=== PATIENT | female | born 1960 | race Caucasian/White ===

== ENCOUNTER 2017-06-08 15:56 | Emergency (ER) | payer BC ==
[2017-06-08 16:20] VITALS: BP 135/80
--- NOTE | 2017-06-08 16:58 | RAD ---
Indication: Lateral LEFT foot pain following rolling injury. Comparison: No relevant prior exams available [place] [facility] [place]. Technique: AP, lateral, and oblique views LEFT foot. Report: Nonarticular mildly comminuted fracture junction distal diaphysis and distal metaphysis of the fifth metatarsal with one bone width medial and less marked dorsal displacement as well as mild foreshortening. Overlying soft tissue swelling. Negative for additional fracture. Normal articular alignment throughout. IMPRESSION: Displaced nonarticular fifth metatarsal fracture.
--- NOTE | 2017-06-08 17:49 | UC ---
Lower Extremity/Ankle HPI - HPI Summary HPI Summary: TRIPPED ON RUG [employer], PAIN IN LEFT MIDFOOT, UNABLE TO BEAR WEIGHT. - History of Current Complaint Chief Complaint: UCLowerExtremity Stated Complaint: LEFT FOOT PAIN Time Seen by Provider: 06/08/17 16:04 Hx Obtained From: Patient ?: No Onset/Duration: Sudden Onset, Lasting Hours, Still Present Severity Initially: Severe Severity Currently: Moderate Aggravating Factor(s): Standing, Ambulation Alleviating Factor(s): Rest, Elevation, Ice Able to Bear Weight: No - Risk Factors Gout Risk Factors: Negative DVT Risk Factors: Negative Septic Arthritis Risk Factor: Negative - Allergies/Home Medications Allergies/Adverse Reactions: Allergies Allergy/AdvReac Type Severity Reaction Status Date / Time Erythromycin Allergy Unknown Verified 06/08/17 16:11 Reaction Details Sulfa Antibiotics Allergy Unknown Verified 06/08/17 16:11 Reaction Details Home Medications: Home Medications Levothyroxine TAB* [Synthroid TAB*] 100 mcg PO DAILY 06/08/17 [History Confirmed 06/08/17] PMH/Surg Hx/FS Hx/Imm Hx Previously Healthy: Yes - Surgical History Surgical History: None - Family History Known Family History: Negative: Other - NO JOINT LAXITY - Social History Lives: With Family Alcohol Use: Occasionally Substance Use Type: None Smoking Status (MU): Never Smoked Tobacco Review of Systems Constitutional: Negative Skin: Negative Eyes: Negative ENT: Negative Respiratory: Negative Cardiovascular: Negative Gastrointestinal: Negative Genitourinary: Negative Motor: Negative Neurovascular: Negative Musculoskeletal: Arthralgia, Myalgia Neurological: Negative Psychological: Negative All Other Systems Reviewed And Are Negative: Yes Physical Exam Triage Information Reviewed: Yes Appearance: Well-Appearing, Well-Nourished, Pain Distress Vital Signs: Initial Vital Signs Temp 97.3 F 06/08/17 16:13 Pulse 85 06/08/17 16:13 Resp 20 06/08/17 16:13 BP 135/80 06/08/17 16:13 Pulse Ox 97 06/08/17 16:13 Vital Signs Reviewed: Yes Eye Exam: Normal ENT Exam: Normal ENT: Positive: Normal ENT inspection Dental Exam: Normal Neck exam: Normal Neck: Positive: Supple, Nontender Respiratory Exam: Normal Respiratory: Positive: Chest non-tender, Lungs clear, Normal breath sounds, No respiratory distress Cardiovascular Exam: Normal Cardiovascular: Positive: RRR, No Murmur, Pulses Normal Abdominal Exam: Normal Musculoskeletal: Positive: No Edema, Strength Limited @, ROM Limited @, Other: - POSITIVE LEFT MIDFOOT TENDERNESS (SEVERE AT 5TH METATARSAL) ; NO LATERAL LEG TENDERNESS; NO ACHILLES TENDERNESS Lower Extremity Course/Dx - Differential Dx/Diagnosis Differential Diagnosis/HQI/PQRI: Fracture (Closed), Fracture (Open), Sprain, Strain Provider Diagnoses: CLOSED DISPLACED LEFT NONARTICULAR FIFTH METATARSAL FRACTURE Discharge - Discharge Plan Condition: Stable Disposition: HOME Patient Education Materials: Foot Fracture in Adults (ED) Referrals: Star Rosas MD [Medical Doctor] - Rex Mcelroy MD [Primary Care Provider] -
== END 2017-06-08 17:44 | disposition home or self-care (01) ==
LOC: UCCORT 15:56
DX: S92.352A Displaced fracture of fifth metatarsal bone, left foot, initial encounter for closed fracture (principal); W22.8XXA Striking against or struck by other objects, initial encounter; Z88.3 Allergy status to other anti-infective agents; Z88.2 Allergy status to sulfonamides
CPT/HCPCS: 99213; G0463

== ENCOUNTER 2019-03-13 17:05 | Emergency (ER) | payer BC ==
--- OUTSIDE RECORDS SUMMARY | 2019-03-13 17:20 | XMS REPORT | Continuity of Care Document ---
:1960 External Reference #:[id number] Author Name RubatawanaJamia Smitha Care Team Providers Name Role Phone Rex Mcelroy MD Primary Care Physician Unavailable Payers Date Identification Numbers Payment Provider Subscriber Effective: 2013 Policy Number: [id number] [facility] Yasmani Deluca PayID: [id number] [address] [place] [address] Advance Directives Type Date Description Status Comment Other Directive 08/03/2016 Health Care Proxy Current and Verified Problems Date Description Provider Status Onset: 02/11/2017 Alkaline phosphatase raised Rex Mcelroy M.D.,FACP Active Note: ?bone & liver Onset: 03/28/2013 Hypothyroidism Nimisha Cavanaugh M.D.,FACP Onset: 03/28/2013 Panic disorder with agoraphobia Nimisha Cavanaugh M.D.,FACP Onset: 08/03/2013 Mixed hyperlipidemia Nimisha Cavanaugh M.D.,FACP Onset: 08/03/2016 Vitamin D deficiency Nimisha Cavanaugh M.D.,FACP Onset: 08/24/2016 Chronic nonalcoholic liver Rex Mcelroy Active disease MNoe,FACP Onset: 09/06/2017 Thyroid nodule Nimisha Cavanaugh M.D.,FACP Family History Date Family Member(s) Observation Comments General Diabetes General Heart Disease General Stroke General Cancer General Rheumatoid Arthritis Onset: (age 63 Years) Father [place] Father Stroke Father Kidney Stones Mother Osteoporosis Mother Heart Disease Mother dementia Siblings None Social History Type Date Description Comments Sex Unknown Marital Status Lives With Spouse Occupation 08/09/2017 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 [employer] ETOH Use 08/03/2016 Occasionally consumes liquor Tobacco Use Start: Unknown Patient has never smoked Recreational Drug Use Denies Drug Use Smoking Status Reviewed: 02/19/19 Patient has never smoked Exercise Type/Frequency Exercises sporadically Allergies, Adverse Reactions, Alerts Date Description Reaction Status Severity Comments 03/28/2013 Erythromycin nausea, vomiting Active 03/28/2013 Sulfa Antibiotics anaphylactic reaction Active Medications Medication Date Status Form Strength Qnty SIG Indications Ordering Provider Atorvastatin 02/19/ Active Tablets 20mg 90tabs take 1 E78.2 [facility] Calcium 2018 tablet at MD Jacky bedtime Synthroid 11/11/ Active Tablets 75mcg 30tabs 02/19/19 Rex 2018 reports Bindu Mcelroy, not taking MNoe,SRINATH 1 by mouth every day Knee Scooter 06/13/ Active Misc 1units Omar 2016 F MD Leoncio Sertraline HCL 11/30/ Active Tablets 50mg 60tabs take 2 F41.0 [facility] 2016 tablets by MD Jacky mouth daily Jublia 04/24/ Active Solution 10% 1units 02/19/19 Rex 2014 reports no Bindu Mcelroy, using Garett,SRINATH apply topically nail once daily x 48 weeks Vitamin D 01/08/ Active Tablets 1000Unit 30tabs 1 tab. by Rex 2014 mouth Bindu Mcelroy, daily Garett,FACP spring/ shaquille, 2 qd fall/winte r Lorazepam 03/28/ Active Tablets 1mg 15tabs 11/15-1 by Rex 2012 mouth as Bindu Mcelroy, needed Garett,SRINATH Multi For Her / Active Capsules 1 by mouth Unknown 0000 every day Sertraline HCL 08/25/ Hx Tablets 50mg 30tabs 1.5 tabs F32.9 Rex 2015 - qd for 2w, Bindu Mcelroy, 09/14/ then 1 qd M.DEmili,SRINATH 2016 for 2w, then 0.5 qd for 2 wks Milk Thistle 08/24/ Hx Capsules 150mg 60caps 1 by mouth Rex 2015 - every day Bindu Mcelroy, 08/09/ Garett,SRINATH 2016 Propranolol 09/20/ Hx Tablets 20mg 14tabs 1 by mouth F40.228 Rex HCL 2016 - daily as Bindu Mcelroy, 02/07/ needed MNoe,FACP 2017 Fluticasone 05/26/ Hx Suspension 50mcg/Act 16unit 2 sprays H81.11 Yasmani Propionate 2016 - s umair Wilber, REGISTRY RN 06/03/ nostril qd 2016 for 14 days Sertraline HCL 01/31/ Hx Tablets 100mg 90tabs 1 Tab PO F32.9 Be 2014 - qd MDD 1 Setswana, 08/25/ REGISTRY RN 2015 Sertraline HCL 08/14/ Hx Tablets 100mg 90tabs 1 tab po 311 Sergio 2013 - qd Diop, REGISTRY RN 2014 Zoloft 12/31/ Hx Tablets 50mg 90tabs 1 by mouth Rex 2013 - every day Bindu Mcelroy, 01/08/ MNoe,FACP 2014 Sertraline HCL / Hx Tablets 50mg 90tabs 1&1/2 po Unknown 0000 - qd 2012 Lorazepam / Hx Tablets 0.5mg 30tabs take 1 Unknown 0000 - pill po qd 2012 traveling Synthroid 00/00/ Hx Tablets 50mcg 14tabs 1 by mouth Rex 0000 - every day Bindu Mcelroy, 11/11/ MNoe,FACP 2017 Immunizations Description No Information Available Vital Signs Date Vital Result Comment 02/19/2019 5:14pm Height 60 inches 5'0" Weight 167.00 lb Heart Rate 84 /min BP Systolic Sitting 124 mmHg BP Diastolic Sitting 81 mmHg Body Temperature 97.9 F O2 % BldC Oximetry 97 % BMI (Body Mass Index) 32.6 kg/m2 10/27/2017 10:05am Height 60 inches 5'0" Weight 153.00 lb Heart Rate 83 /min BP Systolic 133 mmHg BP Diastolic 75 mmHg Respiratory Rate 17 /min Pain Level 1 BMI (Body Mass Index) 29.9 kg/m2 08/16/2017 10:59am Height 60 inches 5'0" Weight 156.00 lb BP Systolic 124 mmHg BP Diastolic 74 mmHg Respiratory Rate 16 /min Pain Level 1 BMI (Body Mass Index) 30.5 kg/m2 08/09/2017 9:25am Height 60 inches 5'0" Weight 156.00 lb Heart Rate 88 /min BP Systolic Sitting 132 mmHg BP Diastolic Sitting 86 mmHg O2 % BldC Oximetry 98 % BMI (Body Mass Index) 30.5 kg/m2 07/07/2017 1:12pm Height 60 inches 5'0" Weight 155.00 lb BP Systolic 118 mmHg BP Diastolic 68 mmHg Respiratory Rate 18 /min Pain Level 0 BMI (Body Mass Index) 30.3 kg/m2 06/09/2017 1:57pm Height 60 inches 5'0" Weight 155.00 lb Respiratory Rate 20 /min Body Temperature 98.7 F Pain Level 0 BMI (Body Mass Index) 30.3 kg/m2 02/07/2017 10:14am Weight 155.00 lb Heart Rate 85 /min BP Systolic Sitting 122 mmHg BP Diastolic Sitting 80 mmHg Body Temperature 97.5 F O2 % BldC Oximetry 96 % 11/30/2016 5:15pm Weight 158.00 lb Heart Rate 83 /min BP Systolic Sitting 120 mmHg BP Diastolic Sitting 80 mmHg O2 % BldC Oximetry 96 % 09/14/2016 9:55am Weight 161.00 lb Heart Rate 76 /min BP Systolic Sitting 122 mmHg BP Diastolic Sitting 70 mmHg Respiratory Rate 15 /min Body Temperature 97.8 F O2 % BldC Oximetry 98 % 08/03/2016 10:35am Weight 161.00 lb Heart Rate 90 /min BP Systolic Sitting 124 mmHg BP Diastolic Sitting 80 mmHg Respiratory Rate 15 /min Body Temperature 98.3 F O2 % BldC Oximetry 98 % 05/26/2016 2:13pm Weight 157.50 lb Heart Rate 68 /min BP Systolic Sitting 129 mmHg BP Diastolic Sitting 85 mmHg Body Temperature 98.1 F O2 % BldC Oximetry 95 % 05/06/2015 1:04pm Height 60.5 inches 5'0.50" Weight 152.00 lb Heart Rate 84 /min BP Systolic Sitting 110 mmHg BP Diastolic Sitting 60 mmHg O2 % BldC Oximetry 98 % BMI (Body Mass Index) 29.2 kg/m2 04/24/2015 1:51pm Weight 153.50 lb Heart Rate 108 /min BP Systolic Sitting 132 mmHg BP Diastolic Sitting 84 mmHg Body Temperature 99.8 F 01/08/2015 3:12pm Height 60 inches 5'0" Weight 153.50 lb Heart Rate 80 /min BP Systolic Sitting 118 mmHg BP Diastolic Sitting 70 mmHg O2 % BldC Oximetry 97 % BMI (Body Mass Index) 30.0 kg/m2 08/14/2014 4:26pm Height 60 inches 5'0" Weight 156.75 lb Heart Rate 74 /min BP Systolic Sitting 106 mmHg BP Diastolic Sitting 73 mmHg Body Temperature 98.0 F O2 % BldC Oximetry 98 % BMI (Body Mass Index) 30.6 kg/m2 08/03/2013 10:50am Height 60 inches 5'0" Weight 156.25 lb Heart Rate 88 /min BP Systolic Sitting 110 mmHg BP Diastolic Sitting 80 mmHg BMI (Body Mass Index) 30.5 kg/m2 03/28/2013 10:54am Height 60 inches 5'0" Weight 162.00 lb Heart Rate 96 /min BP Systolic Sitting 114 mmHg BP Diastolic Sitting 72 mmHg BMI (Body Mass Index) 31.6 kg/m2 Results Test Date Facility Test Result H/L Range Note Laboratory test 11/11/2018 [facility] TSH 9.32 mcIU/mL High 0.34-5.60 1 finding 101 ([place] [address] Stim Horm) [phone] Cortisol 4.23 g/dL 2 T3 Free 3.60 pg/mL N 2.5-3.9 3 Free T4 (Free Thyroxine) 0.62 ng/dL N 0.61-1.12 4 Vitamin D Total 25(Oh) 16.2 ng/mL Low 20-50 5 Thyroglobulin AB > 200.0 IU/mL High <4.0 6 Thyroperoxidase AB > 900.00 IU/mL High <9 7 Lipid Profile 11/11/2018 [facility] Triglycerides 223 mg/dL 8 (Trig/Chol/HDL) [address] [place] [address] [phone] Cholesterol 306 mg/dL 9 HDL Cholesterol 58.4 mg/dL 10 LDL Cholesterol 203 mg/dL 11 Laboratory test 11/11/2018 [facility] TSH (Thyroid 9.32 High 0.34-5.[address] Stim Horm) mcIU/[place] [address] [phone] Vitamin D Total 25(Oh) 16.2 ng/mL Low 20-50 13 Free T4 (Free Thyroxine) 0.62 ng/dL N 0.61-1.12 14 T3 Free 3.60 pg/mL N 2.5-3.9 15 T3 Reverse 17 ng/dL 10-24 16 Thyroperoxidase AB > 900.00 IU/mL High <9 17 Thyroglobulin AB > 200.0 IU/mL High <4.0 18 Cortisol 4.23 g/dL 19 Liver Function 11/11/2018 [facility] Total Protein 7.1 g/dL N 6.4-8.[address] [place] [address] [phone] Albumin 4.5 g/dL N 3.2-5.2 Globulin 2.6 g/dL N 2-4 Albumin/Globulin Ratio 1.7 N 1-3 Total Bilirubin 0.50 mg/dL N 0.2-1.0 Direct Bilirubin 0.10 mg/dL N 0.03-0.18 Indirect Bilirubin 0.4 mg/dL N 0.3-1.0 Alkaline Phosphatase 156 U/L High 34-104 Alt 51 U/L N 7-52 Ast 31 U/L N 13-39 Liver Function 11/11/2018 [facility] Total Protein 7.1 g/dL N 6.4-8.[address] [place] [address] [phone] Albumin 4.5 g/dL N 3.2-5.2 Globulin 2.6 g/dL N 2-4 Albumin/Globulin Ratio 1.7 N 1-3 Total Bilirubin 0.50 mg/dL N 0.2-1.0 Direct Bilirubin 0.10 mg/dL N 0.03-0.18 Indirect Bilirubin 0.4 mg/dL N 0.3-1.0 Alkaline Phosphatase 156 U/L High 34-104 Alt 51 U/L N 7-52 Ast 31 U/L N 13-39 Lipid Profile 11/11/2018 [facility] Triglycerides 223 mg/dL 20 (Trig/Chol/HDL) [address] [place] [address] [phone] Cholesterol 306 mg/dL 21 HDL Cholesterol 58.4 mg/dL 22 LDL Cholesterol 203 mg/dL 23 Laboratory test 09/15/2017 [facility] Cytology SEE RESULT [address] [place] [address] [phone] CBC Auto Diff 12/09/2016 [facility] White Blood 8.2 10^3/uL N 3.5-[address] Count .8 [place] [address] [phone] Red Blood Count 5.32 10^6/uL N 4.0-5.4 Hemoglobin 14.9 g/dL N 12.0-16.0 Hematocrit 45 % N 35-47 Mean Corpuscular Volume 84 fL N 80-97 Mean Corpuscular Hemoglobin 28 pg N 27-31 Mean Corpuscular HGB Conc 33 g/dL N 31-36 Red Cell Distribution Width 13 % N 10.5-15 Platelet Count 258 10^3/uL N 150-450 Mean Platelet Volume 9 um3 N 7.4-10.4 Abs Neutrophils 5.1 10^3/uL N 1.5-7.7 Abs Lymphocytes 2.5 10^3/uL N 1.0-4.8 Abs Monocytes 0.4 10^3/uL N 0-0.8 Abs Eosinophils 0.1 10^3/uL N 0-0.6 Abs Basophils 0 10^3/uL N 0-0.2 Abs Nucleated RBC 0.01 10^3/uL N Granulocyte % 62.7 % N 38-83 Lymphocyte % 30.1 % N 25-47 Monocyte % 4.9 % N 1-9 Eosinophil % 1.7 % N 0-6 Basophil % 0.6 % N 0-2 Nucleated Red Blood Cells % 0.1 N Comp Metabolic Panel 12/09/2016 [facility] Sodium 138 mmol/L N 133-[address] [place] [address] [phone] Potassium 4.2 mmol/L N 3.5-5.0 Chloride 102 mmol/L N 101-111 Co2 Carbon Dioxide 28 mmol/L N 22-32 Anion Gap 8 mmol/L N 2-11 Glucose 105 mg/dL High 70-100 Blood Urea Nitrogen 15 mg/dL N 6-24 Creatinine 0.77 mg/dL N 0.51-0.95 BUN/Creatinine Ratio 19.5 N 8-20 Calcium 9.7 mg/dL N 8.6-10.3 Total Protein 7.3 g/dL N 6.4-8.9 Albumin 4.5 g/dL N 3.2-5.2 Globulin 2.8 g/dL N 2-4 Albumin/Globulin Ratio 1.6 N 1-3 Total Bilirubin 0.40 mg/dL N 0.2-1.0 Alkaline Phosphatase 152 U/L High 34-104 Alt 34 U/L N 7-52 Ast 23 U/L N 13-39 Egfr Non- 78.1 N >60 Egfr 100.5 N >60 26 Laboratory test finding 12/09/2016 [facility] LDH 178 U/L N 140-[address] [place] [address] [phone] C Reactive Protein 3.74 mg/L N < 5.00 28 Ferritin 52.2 ng/mL N 11-307 29 Inr/Protime 12/09/2016 [facility] Inr 0.94 N 0.89-1.[address] [place] [address] [phone] Laboratory test 12/09/2016 [facility] Hepatitis C Nonreactive N Nonreactive [address] [place] [address] [phone] Alpha 1 Antitrypsin A1a 103 mg/dL N 100 - 190 31 Anti Nuclear Antibody 0.5 U N 32 Smooth Muscle Antibody Negative N Negative 33 Laboratory test 08/11/2016 [facility] TSH (Thyroid 3.29 mcIU/mL N 0.34-5.[address] Stim Horm) [place] [address] [phone] Free T4 (Free Thyroxine) 0.85 ng/dL N 0.61-1.12 Vitamin D Total 25(Oh) 20.7 ng/mL Low 30-50 Alkaline Phos 08/11/2016 [facility] Alkaline 172 U/L Abnormal 41 - Isoenzymes [address] Phosphatase 108 [place] [address] [phone] Alp Liver 1% 60.7 % N 27.8-76.3 Alp Liver 1 104.4 IU/L Abnormal 16.2-70.2 Alp Liver 2% 6.2 % N 0.0-8.0 Alp Liver 2 10.7 IU/L Abnormal 0.0-5.8 Alp Bone % 28.1 % N 19.1-67.7 Alp Bone 48.3 IU/L Abnormal 12.1-42.7 Alp Intestine % 5.0 % N 0.0-20.6 Alp Intestine 8.6 IU/L N 0.0-11.0 Alp Placental NotPresent N 34 Lipid Profile 07/27/2016 [facility] Triglycerides 290 mg/dL N 35 (Trig/Chol/HDL) [address] [place] [address] [phone] Cholesterol 282 mg/dL N 36 HDL Cholesterol 44.5 mg/dL N 37 LDL Cholesterol 180 mg/dL N 38 Comp Metabolic Panel 07/27/2016 [facility] Sodium 137 mmol/L N 133-145 [address] [place] [address] [phone] Potassium 4.3 mmol/L N 3.5-5.0 Chloride 102 mmol/L N 101-111 Co2 Carbon Dioxide 30 mmol/L N 22-32 Anion Gap 5 mmol/L N 2-11 Glucose 95 mg/dL N 70-100 Blood Urea Nitrogen 11 mg/dL N 6-24 Creatinine 0.68 mg/dL N 0.51-0.95 BUN/Creatinine Ratio 16.2 N 8-20 Calcium 9.4 mg/dL N 8.6-10.3 Total Protein 7.2 g/dL N 6.4-8.9 Albumin 4.4 g/dL N 3.2-5.2 Globulin 2.8 g/dL N 2-4 Albumin/Globulin Ratio 1.6 N 1-3 Total Bilirubin 0.40 mg/dL N 0.2-1.0 Alkaline Phosphatase 151 U/L High 34-104 Alt 32 U/L N 7-52 Ast 23 U/L N 13-39 Egfr Non- 90.5 N >60 Egfr 116.4 N >60 39 Quantiferon Gold 08/15/2013 [facility] M tuberculosis by Negative TB [address] [facility] [place] [address] [phone] Tuberculosis Antigen Value 0.20 IU/mL 40 Laboratory test 07/27/2013 [facility] Free T4 0.84 ng/mL 0.61 -1.24 finding [address] [place] [address] [phone] TSH (Thyroid Stimulating Horm) 2.79 miu/mL 0.34-5.60 Vitamin D, 25 07/27/2013 [facility] 25-Hydroxy Vitamin <4.0 ng/ mL Hydroxy [address] [place] [address] [phone] 25-Hydroxy Vitamin D3 31 ng/mL 25-Hydroxy Vitamin D Total 31 ng/mL 41 Lipid Profile 07/27/2013 [facility] Triglycerides 182 mg/dL 40-200 (Trig/Chol/HDL) [address] [place] [address] [phone] Cholesterol 260 mg/dL High Less than 200 HDL Cholesterol 49 mg/dL 40-60 42 Cholesterol/HDL Ratio 5.3 Average High 1-4.44 LDL Cholesterol 174.6 High Less Than 100 43 Laboratory test finding 07/27/2013 [facility] Glucose 95 mg/dL 70-100 44 [address] [place] [address] [phone] 1 FASTING 10 HOUR 2 AM 8.7-22.4 PM <10 3 FASTING 10 HOUR 4 FASTING 10 HOUR 5 FASTING 10 HOUR 6 Per canceling and cutting control clerk notice, the reagents used in this analysis may have produced suboptimal results. Clinical interpretation of these results should be done with caution. Repeat testing is recommended as clinically warranted. CORRECTED REPORT --- Corrected on 01/14/19 1011 --- Thyroglob Ab previously reported as: > 200.0 H IU/mL 7 FASTING 10 HOUR 8 Desirable: <150 Borderline High: 150-199 High: 200-499 Very High: >500 9 Desirable: <200 Borderline High: 200-239 High: >239 10 Low: <40 Desirable: 40-60 High: >60 11 Desirable: <100 Near Optimal: 100-129 Borderline High: 130-159 High: 160-189 Very High: >189 12 FASTING 10 HOUR 13 FASTING 10 HOUR 14 FASTING 10 HOUR 15 FASTING 10 HOUR 16 ADDITIONAL INFORMATION This test was developed and its performance characteristics determined by [facility] in a manner consistent with CLIA requirements. This test has not been cleared or approved by the U.S. Food and Drug Administration. Test Performed by: [facility] [address] [place] [address] 17 FASTING 10 HOUR 18 FASTING 10 HOUR 19 AM 8.7-22.4 PM <10 20 Desirable: <150 Borderline High: 150-199 High: 200-499 Very High: >500 21 Desirable: <200 Borderline High: 200-239 High: >239 22 Low: <40 Desirable: 40-60 High: >60 23 Desirable: <100 Near Optimal: 100-129 Borderline High: 130-159 High: 160-189 Very High: >189 24 SEE RESULT BELOW Name: DOLORES DELUCA : [address]: Austin Eugene MD Acct: [id number] Unit: [id number] AGE: 56 Location: THYROID Re09/15/17 SEX: F Status: REG REF SPEC: [id number] ABIODUN: 09/15/17-[address] [facility] [address]: Austin Eugene MD REQ: [id number] RECD: 09/15/17-1230 STATUS: ARMANDO AYON DR: Rex Mcelroy MD _ ORDERED: FNA-IMG GUID BX, CYTO ADEQ-1ST P FINAL DIAGNOSIS Thyroid, right, Ultrasound guided, fine needle aspiration: Benign thyroid nodule-chronic lymphocytic thyroiditis (Oxford class II) The specimen demonstrates modest watery colloid, moderate largely cohesive follicular epithelium arranged in uniform sheets, medium sized follicles and only occasional small groups demonstrating variable Hurthle cell metaplasia. No atypical Hurthle cells are seen. Lymphoid tangles, lymphocytes and plasma cells are seen in the background. No features of papillary carcinoma are seen. In this clinical setting the risk of malignancy is less than 3%. Clinical management of this thyroid nodule should be based on clinical and radiographic features as well as the above findings. THYROID RIGHT - US GUIDED FINE NEEDLE ASPIRATION CLINICAL HISTORY Right nodule-1.2x 0.7x 0.8cm CONTINUED ON NEXT PAGE * ML=Testing performed at Main Lab DEPARTMENT OF PATHOLOGY, [place], [place] [address] Liborio Fish M.D. Director TOM # [id number] RUN DATE: 09/15/17 [facility] LAB LIVE PAGE 2 Patient: ELENADOLORES [id number] (Continued) IMMEDIATE INTERPRETATION (Continued) IMMEDIATE INTERPRETATION Pass 1-inadequate, pass 2-adequate GROSS DESCRIPTION 4- alcohol fixed slide(s) 2 - passes Signed (signature on file) Liborio Fish MD 1249 END OF REPORT * ML=Testing performed at Main Lab DEPARTMENT OF PATHOLOGY, [address] [place], [place] [address] Liborio Fish M.D. Director [facility] # [id number] 25 [id number] 26 Because ethnic data is not always readily available, this report includes an eGFR for both -Americans and non- Americans. The National Kidney Disease Education Program (NKDEP) does not endorse the use of the MDRD equation for patients that are not between the ages of 18 and 70, are , have extremes of body size, muscle mass, or nutritional status, or are non- or non-. According to the National Kidney Foundation, irrespective of diagnosis, the stage of the disease is based on the level of kidney function: Stage Description GFR(mL/min/1.73 m(2)) 1 Kidney damage with normal or decreased GFR 90 2 Kidney damage with mild decrease in GFR 60-89 3 Moderate decrease in GFR 30-59 4 Severe decrease in GFR 15-29 5 Kidney failure <15 (or dialysis) 27 [id number] 28 Acute inflammation: >10.00 29 [id number] 31 Test Performed by: [place] [address] Electrical Engineer Mep: Brad Warren II, M.D., Ph.D. 32 REFERENCE VALUE <=1.0 (Negative) Test Performed by: [place] [address] Electrical Engineer Mep: Brad Warren II, M.D., Ph.D. 33 ADDITIONAL INFORMATION This test was developed and its performance characteristics determined by [facility] in a manner consistent with CLIA requirements. This test has not been cleared or approved by the U.S. Food and Drug Administration. Test Performed by: [place] [address] Electrical Engineer Mep: Brad Warren II, M.D., Ph.D. 34 REFERENCE VALUE Not present Test Performed by: [facility] [place] [address] [id number] Electrical Engineer Mep: Brad Warren II, M.D., Ph.D. 35 Desirable <150 Borderline high 150-199 High 200-499 Very High >500 36 Desirable <200 Borderline high 200-239 High >239 37 Low <40 Desirable: 40-60 High: >60 38 Desirable: <100 mg/dL Near Optimal: 100-129 mg/dL Borderline High: 130-159 mg/dL High: 160-189 mg/dL Very High: >189 mg/dL 39 Because ethnic data is not always readily available, this report includes an eGFR for both -Americans and non- Americans. The National Kidney Disease Education Program (NKDEP) does not endorse the use of the MDRD equation for patients that are not between the ages of 18 and 70, are , have extremes of body size, muscle mass, or nutritional status, or are non- or non-. According to the National Kidney Foundation, irrespective of diagnosis, the stage of the disease is based on the level of kidney function: Stage Description GFR(mL/min/1.73 m(2)) 1 Kidney damage with normal or decreased GFR 90 2 Kidney damage with mild decrease in GFR 60-89 3 Moderate decrease in GFR 30-59 4 Severe decrease in GFR 15-29 5 Kidney failure <15 (or dialysis) 40 This is a qualitative test. The TB antigen IU/mL value is required for documentation on certain government reporting forms (e.g., Form I-693), but this value should not be used to monitor disease progression or response to therapy. Diagnosing or excluding tuberculosis disease, and assessing the probability of LTBI, require a combination of epidemiological, historical, medical, and diagnostic findings that should be taken into account when interpreting QuantiFERON-TB results. Test Performed by: [address] [address] Electrical Engineer Mep: Griffin Hu III, M.D. 41 -- REFERENCE VALUE -- 25-HYDROXY D TOTAL (D2+D3) Optimum levels in the healthy population are 20-50, patients with bone disease may benefit from higher levels within this range. Test Performed by: [facility] [address] [address] Electrical Engineer Mep: Griffin Hu III, M.D. 42 HDL Interpretation: Undesirable: High Risk: Less than 40 mg/dL Desirable: Low Risk: Greater than 60 mg/dL 43 LDL Interpretation: Low Risk Optimal Level: LDL Less than 100 mg/dL Near or Above Optimal: LDL 100-129 mg/dL Borderline High Risk: LDL 130-159 mg/dL High Risk: LDL 160-189 mg/dL Very High Risk: LDL Greater than 189 mg/dL 44 PT IS FASTING Procedures Date Code Description Status 08/31/2017 [id number] Mammogram Completed 06/09/2017 97770 FX Metatarsal Care Completed 03/27/2015 [id number] Colonoscopy Completed 04/26/2014 [id number] Mammogram Completed Encounters Type Date Location Provider Dx Diagnosis Office Visit 10/27/2017 Orthopedic Omar F S92.352D Disp fx of 5th 9:15a Services Of Adolfo Fang MD metatarsal bone, l ft, 7thD Office Visit 08/09/2017 [facility] Internal Rex Ruano Z00.01 Encounter for 9:10a Medicine Garett Mcelroy,FACP general adult medical exam w abnormal findings R59.0 Localized enlarged lymph nodes E03.9 Hypothyroidism, unspecified Z12.31 Encntr screen mammogram for malignant neoplasm of breast Office Visit 02/07/2017 10:20a [facility] Internal Yasmani Merino, R22.9 Localized Medicine REGISTRY RN swelling, mass and lump, unspecified Office Visit 11/30/2016 5:00p [facility] Internal Rex Ruano F41.0 Panic disorder Medicine delvis Mcelroy M.D.,FACP agoraphobia Office Visit 09/14/2016 9:50a [facility] Internal Rex Ruano F40.228 Other natural Medicine lianna Mcelroy M.D.,SRINATH phobia R74.8 Abnormal levels of other serum enzymes Z12.31 Encntr screen mammogram for malignant neoplasm of breast Office Visit 08/03/2016 10:30a [facility] Internal Rex Ruano Z00.00 Encntr for Medicine Garett Mcelroy,FACP general adult medical exam w/o abnormal findings 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 E03.9 Hypothyroidism, unspecified E55.9 Vitamin D deficiency, unspecified Z12.31 Encntr screen mammogram for malignant neoplasm of breast R74.8 Abnormal levels of other serum enzymes D48.5 Neoplasm of uncertain behavior of skin Office Visit 05/26/2016 2:00p [facility] Internal Yasmani Wilber, H81.11 Benign paroxysmal Medicine REGISTRY RN vertigo, right ear J06.9 Acute upper respiratory infection, unspecified Office Visit 05/06/2015 1:00p [facility] Internal Sergio Diop, 834.00 Dislocation Finger Medicine REGISTRY RN Closed Unspec Part 923.20 Contusion Hand(S) Office Visit 04/24/2015 1:50p [facility] Elizabeth Smith, 461.8 Sinusitis Acute Medicine Garett Other 110.1 Dermatophytosis Nail Office Visit 01/08/2015 3:00p [facility] Be Garcia, V70.0 Examination Medicine - [place] REGISTRY RN [address] Routine AT Health Care Facility V77.91 Screening For Lipoid Disorders V77.1 Screening Diabetes Mellitus V76.51 Special Screening For Malignant Neoplasms Colon 300.21 Agoraphobia W/ Panic Disorder 278.1 Adiposity Localized Office Visit 08/14/2014 4:00p [facility] Sergio Diop, 311 Depressive Medicine REGISTRY RN Disorder Not Elsewhere Spec Office Visit 08/03/2013 10:40a [facility] Rex Ruano 300.21 Agoraphobia W/ Medicine Tatiana Mcelroy M.D.,FACP 272.2 Hyperlipidemia Mixed V74.1 Screening Examination Pulmonary Tuberculosis Office Visit 03/28/2013 10:30a [facility] Rex Ruano V70.0 Examination Medicine Garett Mcelroy,FACP General Medical Routine AT Health Care Facility 244.9 Hypothyroidism Other Unspec 300.21 Agoraphobia W/ Panic Disorder V76.51 Special Screening For Malignant Neoplasms Colon 386.11 Vertigo Benign Paroxysmal Position Plan of Treatment Future Appointment(s):04/04/2019 11:40 am - Carley Rico MD at [facility] Hcrzalnl98/08/2019 - Carley Rico MDE03.9 Hypothyroidism, unspecifiedFollow up: SHAKEEL Carpenter labwork/ OedsuqrtbftcjO65.9 Vitamin D deficiency, mpsefdevhcfV99.8 Abnormal levels of other serum enzymesComments:Please take regular vitamin D We will continue to monitor thisF41.0 Panic disorder [episodic paroxysmal anxiety] Comments:Continue current dose of IjqbcdbczqS67.2 Mixed hyperlipidemiaNew Medication:Atorvastatin Calcium 20 mg - take 1 tablet at zxjzcznD65.31 Encounter for screening mammogram for malignant neoplasm ofNew Xrays:US Breast Complete Bilateral, Ordered: 02/19/19Mammogram Screening Marvin, Ordered: 02/19/19
[2019-03-13 17:49] VITALS: BP 135/86
--- NOTE | 2019-03-13 18:04 | ED ---
Skin Complaint - HPI Summary HPI Summary: 58 yr old with the complaint of tick bite to abdomen. Unknown length of time tick attached. The patient has several family members with Lyme. The patient wants to be treated with 14 days of Doxy. SHe has had chills, aches and mild headache. She removed the tick a couple of days ago. Symptoms are mild. - History of Current Complaint Chief Complaint: UCGeneralIllness Time Seen by Provider: 03/13/19 17:51 Stated Complaint: TICK Hx Last Menstrual Period: 2008 Pain Intensity: 2 - Allergy/Home Medications Allergies/Adverse Reactions: Allergies Allergy/AdvReac Type Severity Reaction Status Date / Time Sulfa (Sulfonamide Allergy Severe anaphylaxis Verified 03/13/19 17:43 Antibiotics) erythromycin base AdvReac Vomiting Verified 03/13/19 17:43 Home Medications: Home Medications Atorvastatin* [Lipitor*] 20 mg PO DAILY 03/13/19 [History Confirmed 03/13/19] PMH/Surg Hx/FS Hx/Imm Hx Endocrine/Hematology History: Reports: Hx Thyroid Disease - hypo/rigo's Denies: Hx Diabetes, Hx Anemia GI History: Denies: Hx Jaundice - Cancer History Hx Chemotherapy: No Hx Radiation Therapy: No Infectious Disease History: No Infectious Disease History: Denies: Traveled Outside the [place] in Last 30 Days - Family History Known Family History: Positive: Non-Contributory Negative: Other - NO JOINT LAXITY - Social History Occupation: Employed Full-time Lives: With Family Alcohol Use: Weekly Alcohol Amount: 1/2 glass wine 1-2 times a week Substance Use Type: Reports: None Smoking Status (MU): Never Smoked Tobacco Review of Systems Constitutional: Negative Positive: Chills, Fatigue Positive: Other - tick bite All Other Systems Reviewed And Are Negative: Yes Physical Exam Triage Information Reviewed: Yes Vital Signs On Initial Exam: Initial Vitals Temp Pulse Resp BP Pulse Ox 97.4 F 85 15 135/86 98 03/13/19 17:43 03/13/19 17:43 03/13/19 17:43 03/13/19 17:43 03/13/19 17:43 Vital Signs Reviewed: Yes Appearance: Positive: Well-Appearing, No Pain Distress Skin: Positive: Warm, Skin Color Reflects Adequate Perfusion, Other - tick bite aniceto with some redness to the left upper periumbilical area. Head/Face: Positive: Normal Head/Face Inspection Eyes: Positive: EOMI, ADRIANNA ENT: Positive: Normal ENT inspection Neck: Positive: Nontender Respiratory/Lung Sounds: Positive: Clear to Auscultation, Breath Sounds Present Cardiovascular: Positive: RRR. Negative: Murmur Abdomen Description: Negative: Distended Musculoskeletal: Positive: Strength/ROM Intact Neurological: Positive: Sensory/Motor Intact, Alert, Oriented to Person Place, Time, CN Intact II-III Diagnostics - Vital Signs Vital Signs Temp Pulse Resp BP Pulse Ox 03/13/19 17:43 97.4 F 85 15 135/86 98 - Laboratory Lab Statement: Any lab studies that have been ordered have been reviewed, and results considered in the medical decision making process. Course/Dx - Course Course Of Treatment: 58 yr old with tick bite, and will cover with doxy for 14 days per her request. - Diagnoses Provider Diagnoses: Tick bite of abdominal wall, Hypertension Discharge - Sign-Out/Discharge Documenting (check all that apply): Patient Departure All imaging exams completed and their final reports reviewed: No Studies - Discharge Plan Condition: Good Disposition: HOME Prescriptions: Doxycycline Monohydrate 100 mg PO BID #28 capsule Patient Education Materials: Tick Bite (ED), Hypertension (ED) Referrals: Carley Rico MD [Primary Care Provider] - 4 Days - Billing Disposition and Condition Condition: GOOD Disposition: Home
== END 2019-03-13 18:08 | disposition home or self-care (01) ==
LOC: UCCORT 17:05
DX: S30.861A Insect bite (nonvenomous) of abdominal wall, initial encounter (principal); R68.83 Chills (without fever); R53.83 Other fatigue; W57.XXXA Bitten or stung by nonvenomous insect and other nonvenomous arthropods, initial encounter; Y92.9 Unspecified place or not applicable; I10 Essential (primary) hypertension; E03.9 Hypothyroidism, unspecified; E06.3 Autoimmune thyroiditis; Z88.1 Allergy status to other antibiotic agents; Z88.2 Allergy status to sulfonamides
CPT/HCPCS: 99212; G0463

== ENCOUNTER 2019-08-11 05:23 | Emergency (ER) | payer BC ==
[2019-08-11 05:29] VITALS: BP 159/108
--- NOTE | 2019-08-11 05:48 | ED ---
Bite Injury/Animal - HPI Summary HPI Summary: Pt. is a 58 y.o female who presents to the ER for a cat bite to her right arm that occurred last night around 2229. Pt. states there is a missing cat in her neighborhood and last night she heard cats fighting. She went outside and saw a cat she thought was the missing cat. Pt. called cat senior environmental engineer who came to pick cat up. Pt. picked up the cat when it bit her right forearm. Cat was taken by neighbor but turned out to not be their cat. Pt. states she sees this cat frequently and states it belongs to a neighbor. She is unsure of cats vaccination status but states cat is well cared for and very friendly. Pt. unaware of last tetanus immunization. No significant past hx. Sxs are mild in severity. Touching area makes sxs worse. Rest makes sxs better. - History of Current Complaint Chief Complaint: EDAnimalBite Stated Complaint: CAT BITE KATHLEEN PT Time Seen by Provider: 08/11/19 05:38 Hx Obtained From: Patient Hx Last Menstrual Period: 2008 Pain Intensity: 9 - Allergies/Home Medications Allergies/Adverse Reactions: Allergies Allergy/AdvReac Type Severity Reaction Status Date / Time Sulfa (Sulfonamide Allergy Severe anaphylaxis Verified 08/11/19 05:30 Antibiotics) erythromycin base AdvReac Vomiting Verified 08/11/19 05:30 Home Medications: Home Medications Thyroid TAB 15 MG* 15 mg DAILY 08/11/19 [History Confirmed 08/11/19] Thyroid TAB 30 MG* 30 mg DAILY 08/11/19 [History Confirmed 08/11/19] PMH/Surg Hx/FS Hx/Imm Hx Previously Healthy: Yes Endocrine/Hematology History: Reports: Hx Thyroid Disease - hypo/rigo's Denies: Hx Diabetes, Hx Anemia GI History: Denies: Hx Jaundice - Cancer History Hx Chemotherapy: No Hx Radiation Therapy: No Infectious Disease History: No Infectious Disease History: Denies: Traveled Outside the [place] in Last 30 Days - Family History Known Family History: Positive: Non-Contributory Negative: Other - NO JOINT LAXITY - Social History Alcohol Use: Weekly Alcohol Amount: 1/2 glass wine 1-2 times a week Substance Use Type: Reports: None Smoking Status (MU): Never Smoked Tobacco Review of Systems Constitutional: Negative Negative: Fever, Chills Positive: Other - cat bite right forearm Positive: Other - cat bite to right forearm Neurological: Negative Negative: Weakness, Paresthesia, Numbness All Other Systems Reviewed And Are Negative: Yes Physical Exam Triage Information Reviewed: Yes Vital Signs On Initial Exam: Initial Vitals Temp Pulse Resp BP Pulse Ox 97.6 F 90 16 159/108 99 08/11/19 05:25 08/11/19 05:25 08/11/19 05:25 08/11/19 05:08/11/19 05:25 Vital Signs Reviewed: Yes Appearance: Positive: Well-Appearing - Pt. sitting on bed in NAD. Pleasant. Family present. Skin: Positive: Warm, Dry Head/Face: Positive: Normal Head/Face Inspection Eyes: Positive: Normal, EOMI Neck: Positive: Supple Musculoskeletal: Positive: Other - 4 small puncture wounds to distal right forearm. Mild edema. Area very tender on palpation. Full ROM of wrist with pain. Good radial pulse. Neurological: Positive: Normal, CN Intact II-III Psychiatric: Positive: Affect/Mood Appropriate Diagnostics - Vital Signs Vital Signs Temp Pulse Resp BP Pulse Ox 08/11/19 05:25 97.6 F 90 16 159/108 99 - Laboratory Lab Statement: Any lab studies that have been ordered have been reviewed, and results considered in the medical decision making process. Bite Injury Course/Dx - Course Course Of Treatment: Pt. presenting for cat bit. No signs of infection at this time. Wound was irrigated and dressed by nurse. Tetanus updated. Pt. started on Augmentin. Xr negative for bone involvement or foreign body per my reading, pending final radiology read. Animal bite form faxed to [facility]. Pt. is going to try to find cat's senior environmental engineer. She will return to ER if cat cannot be found or if instructed by the health department. Advised to ice and elevate intermittently. NSAIDS as directed. Augmentin as directed. To f.u with PCP for wound check in 3 days. To return to ER for increased pain, redness , drainage or if concerned. Pt. understands and agrees with plan. - Diagnoses Provider Diagnosis: Cat bite Discharge ED - Sign-Out/Discharge Documenting (check all that apply): Patient Departure Patient Received Moderate/Deep Sedation with Procedure: No - Discharge Plan Condition: Good Disposition: HOME Prescriptions: Amoxicillin/Clavulanate TAB* [Augmentin TAB 875*] 875 mg PO BID #20 tab Patient Education Materials: Animal Bite (ED) Referrals: Carley Rico MD [Primary Care Provider] - Additional Instructions: Please follow up with your PCP for a wound check in 3 days Take antibiotic as directed Ice and elevate arm intermittently Ibuprofen for pain as directed Return to ER for increased pain, redness, drainage, or if concerned - Billing Disposition and Condition Condition: GOOD Disposition: Home
[2019-08-11] MEDS ORDERED: Amoxicillin/Clavulanate TAB* 875 MG PO ONE (05:53)
[2019-08-11] MEDS ORDERED: Tetan/Diph/Pertus SYR(Tdap)* 0.5 ML SYR(BOOSTRIX) use SYR contains LATEX IM ONE (05:53)
== END 2019-08-11 06:30 | disposition home or self-care (01) ==
LOC: ED 05:23
DX: S51.851A Open bite of right forearm, initial encounter (principal); Z23 Encounter for immunization; W55.01XA Bitten by cat, initial encounter; Y92.89 Other specified places as the place of occurrence of the external cause; E03.9 Hypothyroidism, unspecified; Z79.890 Hormone replacement therapy; Z79.899 Other long term (current) drug therapy; Z88.1 Allergy status to other antibiotic agents; Z88.2 Allergy status to sulfonamides
CPT/HCPCS: 90471; 90715; 99283; A9270-GY